=== PATIENT | male | born 1975 | race Caucasian/White ===

== ENCOUNTER → 2016-12-03 | Outpatient (CLI) | payer BC, OTHER ==
--- NOTE | 2016-12-03 12:31 | Diagnostic Imaging Report ---
PROCEDURE: US Gallbladder. TECHNIQUE: Multiple real-time grayscale images were obtained over the right upper quadrant in various projections. INDICATION: Right upper quadrant pain. FINDINGS: The pancreas is largely obscured by bowel gas. The liver is fairly homogeneous and is hyperechoic suggestive of fatty infiltration. No focal mass is seen. The CBD is obscured by bowel gas. No intrahepatic biliary dilatation is identified. The gallbladder demonstrates a hyperechoic focus seen along its wall suggestive of polyp measuring 3 mm. No definite stone. No pericholecystic fluid or gallbladder wall thickening. The right kidney is 12.7 cm in length with no hydronephrosis or focal lesion. No fluid collection is identified in the upper right abdomen. Sonographic Barnett sign is reportedly negative. IMPRESSION: 1. Suggestion of a 3 mm gallbladder polyp. No stones or evidence of cholecystitis is seen. 2. Echogenic liver parenchyma suggestive of fatty infiltration. Dictated by: Dictated on workstation # [id number]
== END ==
LOC: RAD 06:48
PROVIDERS: ATTEND Surgery
DX: K87 Disorders of gallbladder, biliary tract and pancreas in diseases classified elsewhere (principal); K76.9 Liver disease, unspecified
CPT/HCPCS: 76705

== ENCOUNTER → 2016-12-06 | Outpatient (CLI) | payer OTHER ==
[~2016-12-06] MED LIST: CATHETER FLUSH 10 ML SYR IV PRN
--- NOTE | 2016-12-06 15:42 | Diagnostic Imaging Report ---
EXAMINATION: HIDA with EF measurements Indication: Abdominal pain TECHNIQUE: After the intravenous administration of 5.4 mCi of Tc 99m Choletec, imaging over the abdomen was obtained. This was followed by administration of Ensure orally to stimulate intrinsic CCK secretion, followed by continued imaging with ejection fraction measured. FINDINGS: There is homogeneous uptake in the liver with prompt bile duct and gallbladder filling seen. Bowel activity is seen at 20 minutes. Based on further imaging and gallbladder area of interest activity measurements after the administration of Ensure, the gallbladder ejection fraction is estimated at 29%. IMPRESSION: 1. Normal hepatobiliary uptake and Gallbladder filling. 2. Biliary dyskinesia. Poor gallbladder ejection fraction. Dictated by: Dictated on workstation # [id number]
== END ==
LOC: CARD 12:04
PROVIDERS: ATTEND Surgery
DX: K82.8 Other specified diseases of gallbladder (principal)
CPT/HCPCS: 78227

== ENCOUNTER 2016-12-18 05:48 | Outpatient (CLI) | payer OTHER ==
[~2016-12-18] VITALS: Ht 180.3 cm; Wt 113.9 kg
== END 2016-12-18 13:46 ==
LOC: PREOP 05:48
PROVIDERS: ATTEND Surgery
DX: Z01.818 Encounter for other preprocedural examination (principal); Z86.010 Personal history of colon polyps

== ENCOUNTER → 2016-12-20 | Day surgery (SDC) | payer OTHER ==
[~2016-12-20] VITALS: Ht 180.3 cm; Wt 113.9 kg
[~2016-12-20] MED LIST changes: -CATHETER FLUSH 10 ML SYR IV PRN; +FLUMAZENIL (ROMAZICON) 0.1 MG/ML 5 ML VIAL INJ PRN; +MIDAZOLAM 2 MG/2 ML (VERSED) VIAL ONE; +NALOXONE 0.4 MG/ML 1 ML (NARCAN) VIAL IVP PRN; +NS IV 500 ML 500 ML IV SCH; +fentaNYL INJECTION 100 MCG/2 ML AMP ONE
--- OUTSIDE RECORDS SUMMARY | 2016-12-20 08:01 | XMS REPORT ---
Author Kiet Gaston [facility] Address [address] [place], [place] [address] Care Team Providers Care Circulation Director Name Role Phone Kiet Cortez PCP Unavailable Allergies and Adverse Reactions Name Reaction Notes NO KNOWN DRUG ALLERGIES Plan of Treatment Planned Activity Comments Planned Date Planned Time Plan/Goal COMPREHEN METABOLIC PANEL 03/10/2015 12:00 AM METABOLIC PANEL TOTAL CA 08/12/2014 12:00 AM Medications Active Name Start Date Estimated Completion Date SIG Comments Maxalt-SET O TYPE OPERATOR 10 mg oral tablet,disintegrating 08/06/2014 dissolve 1 tablet by oral route 1X as directed All Day Allergy-D 5-120 mg oral tablet extended release 12 hr 01/15/2015 TAKE ONE TABLET BY MOUTH TWICE DAILY Name Start Date Expiration Date SIG Comments Zithromax Z-Will 250 mg oral tablet 09/21/2010 09/26/2010 take 2 tablets (500 mg) by oral route once daily for 1 day then 1 tablet (250 mg) by oral route once daily for 4 days Medrol (Will) 4 mg oral tablets,dose pack 02/27/2011 02/27/2011 take as directed Levaquin 500 mg oral tablet 09/18/2012 10/02/2012 take 1 tablet (500 mg) by oral route once daily for 7 days Levaquin 500 mg oral tablet 03/10/2013 03/24/2013 take 1 tablet (500 mg) by oral route once daily for 7 days Levaquin 500 mg oral tablet 08/06/2014 08/13/2014 take 1 tablet (500 mg) by oral route once daily for 7 days Discontinued Name Start Date Discontinued Date SIG Comments doxycycline hyclate 100 mg oral capsule 09/18/2012 take 1 cap. bid x7day.s promethazine-codeine 6.25-10 mg/5 mL oral syrup 09/18/2012 take 5 milliliters by oral route every 4-6 hours as needed, not to exceed 30 mL in 24 hours Medrol (Will) 4 mg oral tablets,dose pack 03/10/2013 08/06/2014 take as directed for 6 days cetirizine-pseudoephedrine 5-120 mg oral tablet extended release 12 hr 201308/06/2014 TAKE ONE TABLET BY MOUTH TWICE DAILY All Day Allergy-D 5-120 mg oral tablet extended release 12 hr 06/15/20142014 TAKE ONE TABLET BY MOUTH TWICE DAILY Zyrtec-D 5-120 mg oral tablet extended release 12 hr 05/24/2014 08/06/2014 take 1 tablet by oral route 2 times per day Problem List Not available. Vital Signs Date Time BP-Sys(mm[Hg] BP-Mely(mm[Hg]) HR(bpm) RR(rpm) Temp WT HT HC BMI BSA BMI Percentile O2 Sat(%) 08/06/2014 8:41:00 AM 122 mmHg 88 mmHg 64 bpm 18 rpm 96.5 F 267 lbs 71 in 37.24 kg/m2 2.46 m2 10/29/2013 3:38:00 PM 130 mmHg 90 mmHg 83 bpm 18 rpm 97.8 F 267.4 lbs 71 in 37.2943 kg/m 2.465 m 97 % 03/10/2013 3:53:00 PM 136 mmHg 88 mmHg 84 bpm 18 rpm 97.7 F 266 lbs 71 in 37.10 kg/m2 2.46 m2 09/18/2012 10:52:00 AM 140 mmHg 82 mmHg 94 bpm 18 rpm 97.2 F 264 lbs 71 in 36.8201 kg/m 2.4492 m 12/22/2010 10:27:00 AM 122 mmHg 88 mmHg 88 bpm 20 rpm 97.2 F 253 lbs 71 in 35.29 kg/m2 2.40 m2 Social History Name Description Comments Lives with spouse Alcohol Use - Rare Log Sawyer Tobacco Current every day smoker chewing tobacco , 2 cans weekly History of Procedures Date Ordered Description Order Status 09/18/2012 12:00 AM Depo-Medrol 80 Mg Im/C'sandra Reviewed 09/18/2012 12:00 AM Decadron, Per 1 Mg [facility]# [address]-53 Reviewed 10/29/2013 12:00 AM THER/PROPH/DIAG INJ SC/IM Reviewed 10/29/2013 12:00 AM Decadron, Per 1 Mg [facility]# [address]-70 Reviewed 10/29/2013 12:00 AM Depo-Medrol, Per 80 Mg [facility]#[id number] Reviewed 08/06/2014 12:00 AM COMPLETE CBC W/AUTO DIFF WBC Reviewed 08/06/2014 12:00 AM COMPREHEN METABOLIC PANEL Reviewed 08/06/2014 12:00 AM LIPID PANEL Reviewed 08/06/2014 12:00 AM Prostate Cancer Screening Reviewed Results Summary Data and Description Results 08/09/2014 8:12 AM WBC 6.0 RBC 5.38 HGB 16.30 g/dLHCT 47.80 %MCV 89.0 fLMCH 30.30 pgMCHC 34.10 g/dLRDW CV 12.0 %MPV 10.30 fLPLT 249 %NEUT 53.0 %%LYMP 39.20 %%MONO 5.90 %%EOS 1.70 %%BASO 0.20 %#NEUT 3.17 #LYMP 2.34 #MONO 0.35 #EOS 0.10 # BASO 0.01 PSA TOTAL 0.140 ng/mLTRIGLYCERIDES 123.0 mg/dLCHOLESTEROL 164.0 mg/ dLHDL 32.0 mg/dLLDL (CALC) 107.0 mg/dLGLUCOSE 95.0 mg/dLSODIUM 141.0 mmol/ LPOTASSIUM 4.30 mmol/LCHLORIDE 105.0 mmol/LCO2 24.0 mmol/LBUN 16.0 mg/ dLCREATININE 0.80 mg/dLSGOT/AST 50.0 IU/LSGPT/ALT 125.0 IU/LALK PHOS 96.0 IU/ LTOTAL PROTEIN 7.20 g/dLALBUMIN 4.70 g/dLTOTAL BILI 0.90 mg/dLCALCIUM 10.10 mg/ dLeGFR >60 mL/min/1.73 m2 History Of Immunizations Not available. History of Past Illness Name Date of Onset Comments *No known medical problems Hernia, Umibilical Dec 22 2010 10:31AM Upper Respiratory Infection Sep 18 2012 10:58AM Upper Respiratory Infection Mar 10 2013 3:59PM Rhinitis, Allergic Oct 29 2013 3:40PM Sinusitis Aug 06 2014 8:44AM Screening For Prostate Cancer Aug 06 2014 8:44AM Special screening for cardiovascular, respiratory, and genitourinary diseases; ischemic heart disease Aug 06 2014 8:44AM Elevated liver enzymes Aug 12 2014 1:00PM Elevated liver enzymes Mar 10 2015 9:41AM Payers Insurance Name Company Name Plan Name Plan Number Policy Number Policy Group Number [id number] [id number] Saturday, 2009 History of Encounters Visit Date Visit Type Provider 08/06/2014 Office visit Kiet Cortez MD 10/29/2013 Office visit Maribell Swift PHOTO CHECKER 03/10/2013 Office visit Kiet Cortez MD 09/18/2012 Office visit Kiet Cortez MD 12/22/2010 Office visit Kiet Cortez MD 04/04/2009 Office visit Kiet Cortez MD
--- OUTSIDE RECORDS SUMMARY | 2016-12-20 08:01 | XMS REPORT ---
Author Author Kiet Cortez [facility] Address [address] [place], [place] [id number] Care Team Providers Care Stock Buyer Name Role Phone Kiet Cortez PCP Unavailable Allergies and Adverse Reactions Name Reaction Notes NO KNOWN DRUG ALLERGIES Plan of Treatment Planned Activity Comments Planned Date Planned Time Plan/Goal METABOLIC PANEL TOTAL CA 08/12/2014 12:00 AM Medications Active Name Start Date Estimated Completion Date SIG Comments All Day Allergy-D 5-120 mg oral tablet [...] 7 days Levaquin 500 mg oral tablet 03/10/2015 03/17/2015 take 1 tablet (500 mg) by oral route once daily for 7 days Medrol (Will) 4 mg oral tablets,dose pack 03/10/2015 03/16/2015 take as directed for 6 days Discontinued Name Start Date Discontinued Date [...] by oral route 2 times per day Maxalt-HAMMER RUNNER 10 mg oral tablet,disintegrating 08/06/2014 11/10/2015 dissolve 1 tablet by oral route 1X as directed Problem List Not available. Vital Signs Date Time BP-Sys(mm[Hg] BP-Mely(mm[Hg]) HR(bpm) RR(rpm) Temp WT HT HC BMI BSA BMI Percentile O2 Sat(%) 11/10/2015 8:32:00 AM 118 mmHg 82 mmHg 82 bpm 18 rpm 96.1 F 251 lbs 71 in 35.01 kg/m2 2.39 m2 97 % 08/06/2014 8:41:00 AM 122 mmHg 88 mmHg 64 bpm 18 rpm 96.5 F 267 lbs 71 in 37.2386 kg/m 2.4631 m 10/29/2013 3:38:00 PM 130 mmHg 90 mmHg 83 bpm 18 rpm 97.8 F 267.4 lbs 71 in 37.29 kg/m2 2.46 m2 97 % 03/10/2013 3:53:00 PM 136 mmHg 88 mmHg 84 bpm 18 rpm 97.7 F 266 lbs 71 in 37.0991 kg/m 2.4585 m 09/18/2012 10:52:00 AM 140 mmHg 82 mmHg 94 bpm 18 rpm 97.2 F 264 lbs 71 in 36.82 kg/m2 2.45 m2 12/22/2010 10:27:00 AM 122 mmHg 88 mmHg 88 bpm 20 rpm 97.2 F 253 lbs 71 in 35.286 kg/m 2.3977 m Social History Name Description Comments Lives with spouse Alcohol Use - Rare Food And Beverage Lead Tobacco Current every day smoker chewing tobacco , 2 cans weekly History of Procedures Date Ordered Description Order Status 03/10/2015 12:00 AM COMPREHEN METABOLIC PANEL Returned 11/10/2015 12:00 AM COMPLETE CBC W/AUTO DIFF WBC Returned 11/10/2015 12:00 AM COMPREHEN METABOLIC PANEL Returned 11/10/2015 12:00 AM Prostate Cancer Screening Returned 11/10/2015 12:00 AM ASSAY OF TOTAL TESTOSTERONE Returned 11/10/2015 12:00 AM ASSAY BLD/SERUM CHOLESTEROL Returned 09/18/2012 12:00 AM Depo-Medrol 80 Mg Im/C'sandra Reviewed 09/18/2012 12:00 AM Decadron, Per 1 Mg [facility]# [address]-63 Reviewed 10/29/2013 12:00 AM THER/PROPH/DIAG INJ SC/IM Reviewed 10/29/2013 12:00 AM Decadron, Per 1 Mg [facility]# [address]-63 Reviewed 10/29/2013 12:00 AM Depo-Medrol, Per 80 Mg [facility]#1117-0485-94 Reviewed 08/06/2014 12:00 AM COMPLETE CBC W/AUTO [...] mg/dLCALCIUM 10.10 mg/ dLeGFR >60 mL/min/1.73 m2 03/10/2015 10:30 AM GLUCOSE 87.0 mg/dLSODIUM 140.0 mmol/LPOTASSIUM 4.90 mmol/ LCHLORIDE 104.0 mmol/LCO2 29.0 mmol/LBUN 10.0 mg/dLCREATININE 0.90 mg/dLSGOT/ AST 41.0 IU/LSGPT/ALT 99.0 IU/LALK PHOS 109.0 IU/LTOTAL PROTEIN 6.80 g/ dLALBUMIN 4.80 g/dLTOTAL BILI 0.70 mg/dLCALCIUM 9.80 mg/dLeGFR >60 mL/min/1.73m 11/10/2015 9:14 AM WBC 6.5 RBC 5.71 HGB 16.60 g/dLHCT 50.0 %MCV 88.0 fLMCH 29.10 pgMCHC 33.20 g/dLRDW CV 11.40 %MPV 10.20 fLPLT 255 %NEUT 59.70 %%LYMP 29.70 %%MONO 8.40 %%EOS 1.10 %%BASO 0.80 %#NEUT 3.91 #LYMP 1.94 #MONO 0.55 #EOS 0.07 #BASO 0.05 GLUCOSE 94.0 mg/dLSODIUM 139.0 mmol/LPOTASSIUM 4.0 mmol/ LCHLORIDE 104.0 mmol/LCO2 29.0 mmol/LBUN 12.0 mg/dLCREATININE 0.80 mg/dLSGOT/ AST 23.0 IU/LSGPT/ALT 46.0 IU/LALK PHOS 96.0 IU/LTOTAL PROTEIN 6.40 g/dLALBUMIN 4.60 g/dLTOTAL BILI 0.80 mg/dLCALCIUM 9.60 mg/dLeGFR >60 mL/min/1.73m CHOLESTEROL 164.0 mg/dLTESTOSTERONE 355.0 ng/dLPSA TOTAL 0.190 ng/mL History Of Immunizations Not available. History of [...] Elevated liver enzymes Mar 10 2015 9:41AM Screening For Prostate Cancer Nov 10 2015 8:36AM Fatigue Nov 10 2015 8:36AM Special screening for cardiovascular, respiratory, and genitourinary diseases; ischemic heart disease Nov 10 2015 8:36AM Payers Insurance Name Company Name Plan Name Plan Number Policy Number Policy Group Number Start Date [facility] [id number] N/A [facility] [id number] Saturday, 2009 BCBS [facility] [id number] August History of Encounters Visit Date Visit Type Provider 11/10/2015 Office visit Kiet Cortez MD 08/06/2014 Office visit Kiet Cortez MD 10/29/2013 Office visit Maribell Swift BOAT PERSON 03/10/2013 Office visit Kiet Cortez MD 09/18/2012 Office visit Kiet Cortez MD 12/22/2010 Office visit Kiet Cortez MD 04/04/2009 Office visit Kiet Cortez MD
--- OUTSIDE RECORDS SUMMARY | 2016-12-20 08:02 | XMS REPORT ---
Author Author Nolberto Jo [facility] Address [address] [place], [place] [address] Care Team Providers Care Coverage Specialist Name Role Phone Nolberto Jo PCP Kiet Cortez PreferredProvider Unavailable Allergies and Adverse Reactions Name Reaction Notes NO KNOWN DRUG ALLERGIES Plan of Treatment Planned Activity Comments Planned Date Planned Time Plan/Goal BMP 08/12/2014 12:00 AM Medications Active Name Start [...] 03/16/2015 take as directed for 6 days Levaquin 500 mg oral tablet 07/25/2016 08/01/2016 take 1 tablet (500 mg) by oral route once daily for 7 days prednisone 20 mg oral tablet 07/25/2016 07/31/2016 Take 3 tabs x 2 days; then Take 2 tabs x 2 days; then Take 1 tab x 2 days. Discontinued Name Start Date Discontinued Date SIG [...] by oral route 2 times per day Maxalt-FIELD HAND 10 mg oral tablet,disintegrating 08/06/2014 11/10/2015 dissolve 1 tablet by oral route 1X as directed Problem List Not available. Vital Signs Date Time BP-Sys(mm[Hg] BP-Mely(mm[Hg]) HR(bpm) RR(rpm) Temp WT HT HC BMI BSA BMI Percentile O2 Sat(%) 07/25/2016 4:16:00 PM 140 mmHg 80 mmHg 83 bpm 16 rpm 97.5 F 271 lbs 71 in 37.80 kg/m2 2.48 m2 97 % 11/10/2015 8:32:00 AM 118 mmHg 82 mmHg 82 bpm 18 rpm 96.1 F 251 lbs 71 in 35.007 kg/m 2.3882 m 97 % 08/06/2014 8:41:00 AM 122 mmHg [...] Lives with spouse Alcohol Use - Rare Box Car Bracer Tobacco Current every day smoker chewing tobacco , 2 cans weekly History of Procedures Date Ordered Description Order Status 03/10/2015 12:00 AM COMPREHEN METABOLIC PANEL Reviewed 11/10/2015 12:00 AM COMPLETE CBC W/AUTO DIFF WBC Returned 11/10/2015 12:00 AM COMPREHEN METABOLIC PANEL Returned 11/10/2015 12:00 AM Prostate Cancer Screening Returned 11/10/2015 12:00 AM ASSAY OF TOTAL TESTOSTERONE Returned 11/10/2015 12:00 AM ASSAY BLD/SERUM CHOLESTEROL Returned 09/18/2012 12:00 AM Depo-Medrol 80 Mg Im/C'sandra Reviewed 09/18/2012 12:00 AM Decadron, Per 1 Mg [facility]# [address]-82 Reviewed 10/29/2013 12:00 AM THER/PROPH/DIAG INJ SC/IM Reviewed 10/29/2013 12:00 AM Decadron, Per 1 Mg [facility]# [address]-85 Reviewed 10/29/2013 12:00 AM Depo-Medrol, Per 80 Mg [facility]#3801-7938-26 Reviewed 08/06/2014 12:00 AM COMPLETE CBC W/AUTO DIFF WBC Reviewed 08/06/2014 12:00 AM COMPREHEN METABOLIC PANEL Reviewed 08/06/2014 12:00 AM LIPID PANEL Reviewed 08/06/2014 12:00 AM Prostate Cancer Screening Reviewed Results Summary Data and Description Results 08/09/2014 8:12 AM WBC 6.0 RBC 5.38 HGB 16.30 g/dLHCT 47.80 %MCV 89.0 fLMCH 30.30 pgMCHC 34.10 g/dLRDW SD 38 RDW CV 12.0 %MPV 10.30 fLPLT 249 NRBC# 0.00 NRBC% 0.0 %NEUT 53.0 %%LYMP 39.20 %%MONO 5.90 %%EOS 1.70 %%BASO 0.20 %#NEUT 3.17 #LYMP 2.34 #MONO 0.35 #EOS 0.10 #BASO 0.01 MANUAL DIFF NOT IND PSA TOTAL 0.140 ng/mLTRIGLYCERIDES 123.0 mg/dLCHOLESTEROL 164.0 mg/dLHDL 32.0 mg/dLTOT CHOL/HDL 5.1 LDL (CALC) 107.0 mg/dLGLUCOSE 95.0 mg/dLSODIUM 141.0 mmol/ LPOTASSIUM 4.30 mmol/LCHLORIDE 105.0 mmol/LCO2 24.0 mmol/LBUN 16.0 mg/ dLCREATININE 0.80 mg/dLSGOT/AST 50.0 IU/LSGPT/ALT 125.0 IU/LALK PHOS 96.0 IU/ LTOTAL PROTEIN 7.20 g/dLALBUMIN 4.70 g/dLTOTAL BILI 0.90 mg/dLCALCIUM 10.10 mg/ dLAGE 40 GFR NonAA 107 GFR AA 130 eGFR >60 mL/min/1.73 m2eGFR AA* >60 03/10/2015 10:30 AM GLUCOSE 87.0 mg/dLSODIUM 140.0 mmol/LPOTASSIUM 4.90 mmol/ LCHLORIDE 104.0 mmol/LCO2 29.0 mmol/LBUN 10.0 mg/dLCREATININE 0.90 mg/dLSGOT/ AST 41.0 IU/LSGPT/ALT 99.0 IU/LALK PHOS 109.0 IU/LTOTAL PROTEIN 6.80 g/ dLALBUMIN 4.80 g/dLTOTAL BILI 0.70 mg/dLCALCIUM 9.80 mg/dLAGE 39 GFR NonAA 93 GFR AA 113 eGFR >60 mL/min/1.73meGFR AA* >60 11/10/2015 9:14 AM WBC 6.5 RBC 5.71 HGB 16.60 g/dLHCT 50.0 %MCV 88.0 fLMCH 29.10 pgMCHC 33.20 g/dLRDW SD 37 RDW CV 11.40 %MPV 10.20 fLPLT 255 NRBC# 0.00 NRBC% 0.0 %NEUT 59.70 %%LYMP 29.70 %%MONO 8.40 %%EOS 1.10 %%BASO 0.80 %#NEUT 3.91 #LYMP 1.94 #MONO 0.55 #EOS 0.07 #BASO 0.05 MANUAL DIFF NOT IND GLUCOSE 94.0 mg/dLSODIUM 139.0 mmol/LPOTASSIUM 4.0 mmol/LCHLORIDE 104.0 mmol/LCO2 29.0 mmol/LBUN 12.0 mg/dLCREATININE 0.80 mg/dLSGOT/AST 23.0 IU/LSGPT/ALT 46.0 IU/ LALK PHOS 96.0 IU/LTOTAL PROTEIN 6.40 g/dLALBUMIN 4.60 g/dLTOTAL BILI 0.80 mg/ dLCALCIUM 9.60 mg/dLAGE 40 GFR NonAA 107 GFR AA 130 eGFR >60 mL/min/1.73meGFR AA* >60 CHOLESTEROL 164.0 mg/dLTESTOSTERONE 355.0 ng/dLPSA TOTAL 0.190 [...] ischemic heart disease Nov 10 2015 8:36AM Acute bronchitis, unspecified organism Jul 25 2016 4:18PM Payers Insurance Name Company Name Plan Name Plan Number Policy Number Policy Group Number Start Date [facility] [id number] N/A [facility] [id number] Saturday[id number] August History of Encounters Visit Date Visit Type Provider 07/25/2016 Office visit Nolberto Jo TORSION SPRING COILING MACHINE SETTER 11/10/2015 Office visit Kiet Cortez MD 08/06/2014 Office visit Kiet Cortez MD 10/29/2013 Office visit Maribell Swift TORSION SPRING COILING MACHINE SETTER 03/10/2013 Office visit Kiet Cortez MD 09/18/2012 Office visit Kiet Cortez MD 12/22/2010 Office visit Kiet Cortez MD 04/04/2009 Office visit Kiet Cortez MD
--- OUTSIDE RECORDS SUMMARY | 2016-12-20 08:02 | XMS REPORT | Continuity of Care Document ---
Author Author [facility] Address Unknown Phone Unavailable Allergies Medications Problems Procedures Results Encounters ACCT No. Visit Date/Time Discharge Status Pt. Type Provider Facility Loc./Unit Complaint [id number] 10/29/2013 17:14:31 10/29/2013 23: 59:59 CLS Outpatient Maribell Swift [id number] 07/25/2016 17:11:03 ACT Outpatient Nolberto Jo
--- OUTSIDE RECORDS SUMMARY | 2016-12-20 08:02 | XMS REPORT ---
Author Author Kiet Cortez [facility] Address [address] [place], [place] [address] Care Team Providers Care Materials Planning Analyst Name Role Phone Kiet Cortez PCP Unavailable Kiet Cortez PreferredProvider Unavailable Allergies and Adverse [...] by oral route 2 times per day Maxalt-COUNSELING PSYCHOLOGIST 10 mg oral tablet,disintegrating 08/06/2014 11/10/2015 dissolve [...] Lives with spouse Alcohol Use - Rare Dbas Tobacco Current every day smoker chewing tobacco [...] 1 Mg [facility]# [address]-80 Reviewed 10/29/2013 12:00 AM THER/PROPH/DIAG INJ SC/IM Reviewed 10/29/2013 12:00 AM Decadron, Per 1 Mg [facility]# [address]-02 Reviewed 10/29/2013 12:00 AM Depo-Medrol, Per 80 Mg [facility]#3778-3994-59 Reviewed 08/06/2014 12:00 AM COMPLETE CBC W/AUTO [...] Policy Number Policy Group Number Start Date [facility] [id number] N/A [facility] [id number] Saturday, 2009 BCBS [facility] [id number] August History of Encounters Visit Date Visit Type Provider 11/10/2015 Office visit Kiet Cortez MD 08/06/2014 Office visit Kiet Cortez MD 10/29/2013 Office visit Maribell Swift APRN 03/10/2013 Office visit Kiet Cortez MD 09/18/2012 Office visit Kiet Cortez MD 12/22/2010 Office visit Kiet Cortez MD 04/04/2009 Office visit Kiet Cortez MD
[2016-12-20 08:42] VITALS: BP 126/85
--- NOTE | 2016-12-20 08:51 | Conscious Sedation/ASA ---
Conscious Sedation Pre-Proced Time Reviewed: 08:51 ASA Class: 2 Airway Mallampati Classification: ([place] appropriate class) I. II. III, IV Lungs Heart ASA score ASA 1: a normal healthy patient ASA 2: a patient with a mild systemic disease (mid diabetes, controlled hypertension, obesity ASA 3: a patient with a severe systemic disease that limits activity (angina , COPD, prior Myocardial infarction) ASA 4: a patient with an incapacitating disease that is a constant threat to life (CHF, renal failure) ASA 5: a moribund patient not expected to survive 24 hrs. (ruptured aneurysm) ASA 6: a declared brain patient whose organs are being harvested. For emergent operations, add the letter E after the classification Grade 2 Sedation Plan: Discussed options with patient/fam Note The patient is an appropriate candidate to undergo the planned procedure, sedation, and anesthesia. The patient immediately re-assessed prior to indication. SAJAN SAM MD Dec 20, 2016 8:51 am
[2016-12-20] MEDS: MIDAZOLAM 2 MG/2 ML (VERSED) VIAL IVP PRN ×3 (09:30→09:45)
[2016-12-20] MEDS: fentaNYL INJECTION 100 MCG/2 ML AMP IVP PRN ×4 (09:33→09:50)
--- NOTE | 2016-12-20 09:59 | Endo Procedure Record ---
Endo Procedure Report Date of Procedure Dec 20, 2016 Surgeon (s) SAJAN SAM MD Post Procedure/Op Diagnosis very few sigmoid diverticula Procedure Performed anoscopy to cecum Description of Procedure Anesthesia Type: Conscious Sedation Specimen(s) collected/removed none Description of the Procedure Indication for procedure: This gentleman has a personal history of adenomatous polyps and his last examination was in 2010. He returned for surveillance colonoscopy. Informed consent was obtained after reviewing the procedure in detail Description of procedure: He was placed in left lateral decubitus position and his vital signs were monitored. Conscious sedation was achieved using Versed and fentanyl. Digital rectal examination was unremarkabletthe colonoscope was introduced into the rectum and advanced all the way up to the cecum. The scope was then withdrawn slowly and the mucosa examined in a systematic fashion. Finding: very few sigmoid diverticula. No recurrent polyps were found He tolerated the procedure well and was taken back to the nursing area in a stable condition. IMPRESSION: Polyp surveillance. No recurrence. Recommend repeating in 5 years. Copies To: alex bowen M.D JENKINS, XAVIER M MD Dec 20, 2016 9:59 am
--- NOTE | 2016-12-20 10:00 | Discharge Inst-Simple/Standard ---
Discharge Inst-Standard Discharge Medications New, Converted or Re-Newed RX: Other Patient Instructions/Follow Up Plan of Care/Instructions/FU: rrepeat colonoscopy in 5 years. To return for gallbladder surgery on the Activity as Tolerated: Yes Discharge Diet: No Restrictions SAJAN SAM MD Dec 20, 2016 10:00 am
--- NOTE | 2016-12-20 10:05 | History & Physicial ---
History of Present Illness History of Present Illness Reason for visit/HPI Right upper quadrant pain due to severe dyskinesia of the gallbladder. To undergo robotic-assisted cholecystectomy Date of Admission 01/04/17: Date Seen by Provider: Dec 20, 2016 Time Seen by Provider: 10:01 I consulted on this patient on 12/20/16 10:00 Attending Physician Sajan Sam MD Admitting Physician Kiet Cortez MD Consult Allergies and Home Medications Allergies Coded Allergies: No Known Drug Allergies (Unverified , 01/29/11) Past Dhkvuer-Avcpbc-Jzgqzh Hx Patient Social History Marrital Status: Employed/Student: employed Alcohol Use: Denies Use Recreational Drug Use: No Smoking Status: Never a Smoker Recent Foreign Travel: No Contact w/other who traveled: No Recent Hopitalizations: No Seasonal Allergies Seasonal Allergies: No Surgeries HX Surgeries: Yes (UMB HERNIA) Surgeries: Abdominal Respiratory Hx Respiratory Disorders: No Cardiovascular Hx Cardiovascular Disorders: No Neurological Hx Neurological Disorders: No Reproductive System Hx Reproductive Disorders: No Sexually Transmitted Disease: No Genitourinary Hx Genitourinary Disorders: No Gastrointestinal Hx Gastrointestinal Disorders: No Gastrointestinal Disorders: Abdominal Hernia, Polyps, Gall Bladder Disease Musculoskeletal Hx Musculoskeletal Disorders: No Endocrine Hx Endocrine Disorders: No HEENT HX ENT Disorders: No Cancer Hx Cancer: No Psychosocial Hx Psychiatric Problems: No Integumentary HX Skin/Integumentary Disorder: No Blood Transfusions Hx Blood Disorders: No Constitutional: no symptoms reported EENTM: no symptoms reported Respiratory: no symptoms reported Cardiovascular: no symptoms reported Gastrointestinal: abdominal pain (RUQ) Genitourinary: no symptoms reported Musculoskeletal: no symptoms reported Skin: no symptoms reported Psychiatric/Neurological: No Symptoms Reported Physical Exam Vital Signs Vital Sign - Last 12Hours 12/20/16 08:42 Temp 97.0 Pulse 73 Resp 20 B/P (MAP) 126/85 Pulse Ox 94 O2 Delivery Room Air Capillary Refill : General Appearance: No Apparent Distress HEENT: Normal ENT Inspection Neck: Normal Inspection Respiratory: Lungs Clear Cardiovascular: Regular Rate, Rhythm Gastrointestinal: No Organomegaly, Non Tender, Soft Rectal: Deferred Back: Normal Inspection Extremity: Normal Capillary Refill Neurologic/Psychiatric: Alert, Oriented x3 Skin: Normal Color, Warm/Dry Lymphatic: No Adenopathy Assessment/Plan Assessment and Plan Gentleman with dyskinesia of the gallbladder with reduced ejection fraction during the conduct of HIDA scan. Offered robotic-assisted cholecystectomy to relieve his symptoms. Operative details, expected recovery, complications of postoperative bile leak and persistence of his pain discussed in detail. Seems to be in agreement to proceed. Problems: Admission Diagnosis Gallbladder dyskinesia SAJAN SAM MD Dec 20, 2016 10:05 am
[2016-12-20 10:15] VITALS: BP 111/63
[2016-12-20 10:35] VITALS: BP 107/82
[2016-12-20 10:37] VITALS: BP 107/82
== END | disposition home or self-care (01) ==
LOC: ENDO 07:56
PROVIDERS: ATTEND Surgery
DX: Z12.11 Encounter for screening for malignant neoplasm of colon (principal); Z86.010 Personal history of colon polyps

== ENCOUNTER 2017-01-01 05:36 | Outpatient (CLI) | payer OTHER ==
[~2017-01-01] VITALS: Ht 180.3 cm; Wt 113.9 kg
[2017-01-04] MEDS ORDERED: HYDR-3820 PO ×2 (09:23)
== END 2017-01-01 10:24 ==
LOC: PREOP 05:36
PROVIDERS: ATTEND Surgery
DX: Z01.818 Encounter for other preprocedural examination (principal); K82.4 Cholesterolosis of gallbladder; K82.8 Other specified diseases of gallbladder

== ENCOUNTER 2017-01-04 05:55 | Day surgery (SDC) | payer OTHER ==
--- NOTE | 2017-01-03 12:13 | History & Physicial ---
History of Present Illness History of Present Illness Reason for visit/HPI To undergo robotic-assisted cholecystectomy, to address dyskinesia of the gallbladder with chronic cholecystitis Date of Admission 01/04/17 Date Seen by Provider: Jan 03, 2017 Time Seen by Provider: 12:11 I consulted on this patient on 01/03/17 12:10 Attending Physician Sajan Sam MD Admitting Physician Kiet Cortez MD Consult Allergies and Home Medications Allergies Coded Allergies: No Known Drug Allergies (Unverified , 01/29/11) Past Gosmyyc-Fkmafr-Oyygja Hx Patient Social History Marrital Status: Employed/Student: employed Smoking Status: Never a Smoker Recent Hopitalizations: No Seasonal Allergies Seasonal Allergies: No Surgeries HX Surgeries: Yes (UMB HERNIA) Surgeries: Abdominal Respiratory Hx Respiratory Disorders: No (was tested for apnea-negative) Cardiovascular Hx Cardiovascular Disorders: No Neurological Hx Neurological Disorders: No Reproductive System Hx Reproductive Disorders: No Sexually Transmitted Disease: No Genitourinary Hx Genitourinary Disorders: No Gastrointestinal Hx Gastrointestinal Disorders: Yes Gastrointestinal Disorders: Abdominal Hernia, Polyps, Gall Bladder Disease Musculoskeletal Hx Musculoskeletal Disorders: No Endocrine Hx Endocrine Disorders: No HEENT HX ENT Disorders: No Cancer Hx Cancer: No Psychosocial Hx Psychiatric Problems: No Integumentary HX Skin/Integumentary Disorder: No Blood Transfusions Hx Blood Disorders: No Constitutional: no symptoms reported EENTM: no symptoms reported Respiratory: no symptoms reported Cardiovascular: no symptoms reported Gastrointestinal: abdominal pain (RUQ), diarrhea Genitourinary: no symptoms reported Musculoskeletal: no symptoms reported Skin: no symptoms reported Psychiatric/Neurological: No Symptoms Reported Physical Exam Vital Signs Capillary Refill : General Appearance: No Apparent Distress HEENT: Normal ENT Inspection Neck: Normal Inspection Respiratory: Lungs Clear Cardiovascular: Regular Rate, Rhythm Gastrointestinal: Non Tender, Soft Back: Normal Inspection Extremity: Normal Inspection Neurologic/Psychiatric: Alert, Oriented x3 Skin: Normal Color, Warm/Dry Comments no recurrence of ventral hernia. Barnett's sign negative. Assessment/Plan Assessment and Plan Gentleman with a small polyp in his gallbladder and severe reduction in the gallbladder ejection fraction. Discussed the details of robotic-assisted cholecystectomy. Expected recovery, complications of wound infection and bile leak etc. discussed in detail. Seems to be in agreement to proceed. Problems: SAJAN SAM MD Jan 03, 2017 12:13 pm
[~2017-01-04] VITALS: Ht 180.3 cm; Wt 113.9 kg
[2017-01-04] MEDS: LACTATED RINGERS 1,000 ML IV PRN ×2 (06:15→08:30)
[2017-01-04 06:20] VITALS: BP 140/90
[2017-01-04] MEDS ORDERED: ONDANSETRON 4 MG/2 ML (SDV) Z0FRAN ONE (06:36)
[2017-01-04] MEDS ORDERED: MIDAZOLAM 2 MG/2 ML (VERSED) VIAL ONE (06:36)
[2017-01-04] MEDS ORDERED: ROCURONIUM 50 MG/5 ML (ZEMURON) VIAL IV ONE (06:36)
[2017-01-04] MEDS ORDERED: fentaNYL INJECTION 100 MCG/2 ML AMP ONE ×2 (06:36→08:52)
[2017-01-04] MEDS ORDERED: LIDOCAINE PF 2% 5 ML (XYLOCAINE) VIAL ONE (06:36)
[2017-01-04] MEDS ORDERED: SEVOFLURANE (ULTANE) 15 ML INHAL SOLN ONE ×5 (06:36→09:11)
[2017-01-04] MEDS ORDERED: proPOfol 200 MG/20 ML (DIPRIVAN) VIAL IV ONE (06:36)
[2017-01-04] MEDS ORDERED: DEXAMETHASONE PF 10 MG/ML (DECADRON) VIAL ONE (06:36)
[2017-01-04] MEDS ORDERED: metroNIDAZOLE 500MG/100ML IVPB 100 ML ONE (06:51)
[2017-01-04] MEDS ORDERED: ceFAZolin 2 GM/50 ML NS 50 ML ONE (06:51)
[2017-01-04] MEDS ORDERED: metroNIDAZOLE 500 MG/100 ML IVPB (PRE-MIX) IV ONE (07:00)
[2017-01-04] MEDS ORDERED: ceFAZolin 2 GM/NS 50 ML IV ONE (07:00)
[2017-01-04] MEDS ORDERED: BUP/EPI 0.25% 1:200,000 (MARCAINE) 10 ML VIAL IJ ONE (07:05)
--- NOTE | 2017-01-04 07:53 | Progress Note-Pre Operative ---
Pre-Operative Progress Note H&P Reviewed The H&P was reviewed, patient examined and no changes noted. Date Seen by Provider: Jan 04, 2017 Time Seen by Provider: 07:52 Date H&P Reviewed: Jan 04, 2017 Time H&P Reviewed: 07:53 Pre-Operative Diagnosis: Chronic cholecystitis SAJAN SAM MD Jan 04, 2017 7:53 am
[2017-01-04] MEDS ORDERED: LACTATED RINGERS 1,000 ML IV ONE (08:35)
[2017-01-04] MEDS ORDERED: ONDANSETRON 4 MG/2 ML (SDV) Z0FRAN IVP PRN (09:15)
[2017-01-04] MEDS ORDERED: MEPERIDINE (DEMEROL) INJ 50 MG/ML IVP PRN (09:15)
--- NOTE | 2017-01-04 09:22 | Operative Report ---
Operative Report Date of Procedure/Surgery Jan 04, 2017 Surgeon (s) SAJAN SAM MD Go Cart Mechanic (s): not applicable Post-Operative Diagnosis same Procedure Performed robotic-assisted cholecystectomy Description of Procedure Anesthesia Type: General Estimated blood loss (mL): minimal Specimen(s) collected/removed gallbladder Description of the Procedure Indication for procedure: This gentleman presented with typical biliary colic due to a combination of a polyp in the gallbladder and chronic, acalculous cholecystitis with reduction of a gallbladder ejection fraction. He was therefore offered cholecystectomy using minimally invasive technique with robotic assistance. Informed consent was obtained after reviewing the operative details and complications of wound infection, bile leak of his symptoms. Description of the procedure: He was placed supine on the operating table and general anesthesia induced using an endotracheal tube. Ancef and Flagyl were administered intravenously as prophylaxis against infection. Sequential compression devices were placed around his legs, to minimize the risk of venous thrombosis. Abdomen was prepared and draped in the usual sterile manner. Due to previous repair of an umbilical hernia with mesh, I elected to establish pneumoperitoneum using a Veress needle introduced over the left subcostal margin. Intra-abdominal pressure was maintained at 15 mmHg using carbon dioxide insufflation. A 5 mm trocar was placed and anatomy visualized using a 30, conventional laparoscope. Omentum was adherent to the mesh without any recurrence of the hernia. Under direct view, placed a 12 mm cannula associated da Sen system over the left side of the abdomen and took down the omentum. Subsequently, a 12 mm trocar was placed superior to the edge of the mesh followed by another 8 mm trocar over the right side of the abdomen. At this point, we changed to the robotic system. The patient was turned into reverse Trendelenburg position and the robotic system docked into place. 2 cystic lesions about a millimeters in size were found over the dome of the right lobe of the liver. Gallbladder was rather intrahepatic. The fundus of the gallbladder was retracted cephalad and the infundibulum grasped with Cardiere forceps. Thickened tissue neck of the gallbladder was incised using the cautery, delineating the cystic duct and artery. Both were divided between locking clips. Cholecystectomy was then completed using the hook cautery. There was some spillage of bile and therefore subhepatic space irrigated with warm saline. Gallbladder was then placed in an Endo Catch bag and removed via the supraumbilical trocar site. The fascia over this incision was closed using #1 Vicryl using a Luis Eduardo Duggan device. Skin incisions were closed using 4-0 Vicryl, in a subcuticular fashion. 0.25 percent Marcaine with epinephrine was infiltrated along the incisions, both pre-emptively and at the conclusion of the operation. He tolerated the procedure well, was intubated and taken to the recovery room in a stable condition. Showell and sponges and instruments were correct within the operation Findings of the Procedure see operative description Allergies and Home Medications Allergies Coded Allergies: No Known Drug Allergies (Unverified , 01/29/11) SAJAN SAM MD Jan 04, 2017 9:22 am
[2017-01-04] MEDS ORDERED: HYDR-3820 PO (09:23)
--- NOTE | 2017-01-04 09:24 | Discharge Inst-Simple/Standard ---
Discharge Inst-Standard Discharge Medications New, Converted or Re-Newed RX: RX on Chart Patient Instructions/Follow Up Plan of Care/Instructions/FU: ddressings off in 48 hours. Incentive spirometry. Follow-up in 3 weeks. Activity as Tolerated: Yes Discharge Diet: No Restrictions SAJAN SAM MD Jan 04, 2017 9:24 am
[2017-01-04] MEDS ORDERED: KETOROLAC 30 MG/ML VIAL ONE (09:28)
[2017-01-04] MEDS: morphine INJ 10 MG/ML 1ML (SYR OR VIAL) IVP PRN ×2 (09:35→09:45)
[2017-01-04 10:30] VITALS: BP 136/90
[2017-01-04 11:00] VITALS: BP 138/85
[2017-01-04 11:15] VITALS: BP 138/85
== END 2017-01-04 11:20 | disposition home or self-care (01) ==
LOC: SDC 05:55
PROVIDERS: ATTEND Surgery
DX: K81.1 Chronic cholecystitis (principal); E66.9 Obesity, unspecified; Z68.35 Body mass index [BMI] 35.0-35.9, adult
CPT/HCPCS: 87081; 94664